=== PATIENT | female | born 1940 | race Caucasian/White ===

== ENCOUNTER → 2020-03-06 | Outpatient (CLI) | payer MEDICARE, BC | END | disposition home or self-care (01) | LOC: RAD 13:08 | PROVIDERS: ATTEND Specialist | DX: C54.1 Malignant neoplasm of endometrium (principal); R06.02 Shortness of breath; F41.9 Anxiety disorder, unspecified; G47.00 Insomnia, unspecified; G89.18 Other acute postprocedural pain; N17.9 Acute kidney failure, unspecified; I10 Essential (primary) hypertension; R11.0 Nausea; R30.0 Dysuria; R50.9 Fever, unspecified; R65.20 Severe sepsis without septic shock; R87.620 Atypical squamous cells of undetermined significance on cytologic smear of vagina (ASC-US); I26.99 Other pulmonary embolism without acute cor pulmonale; Z95.0 Presence of cardiac pacemaker | CPT/HCPCS: 71045; 78582; A9540; A9558 ==